=== PATIENT | female | born 1935 ===

== ENCOUNTER 2018-08-13 10:56 | Outpatient (CLI) | payer OTHER | END 2018-08-13 11:04 | disposition home or self-care (01) | LOC: RAD 10:56 | DX: S43.422A Sprain of left rotator cuff capsule, initial encounter (principal); T18.8XXA Foreign body in other parts of alimentary tract, initial encounter ==

== ENCOUNTER → 2020-12-06 | Outpatient (CLI) | payer OTHER | END | disposition home or self-care (01) | LOC: MRI 13:15 → RAD 13:15 → MRI 13:45 | PROVIDERS: ATTEND Neurological Surgery | DX: M48.02 Spinal stenosis, cervical region (principal); M54.2 Cervicalgia; Z98.1 Arthrodesis status | CPT/HCPCS: 72141 ==